=== PATIENT | female | born 2000 | race Two or more races ===

== ENCOUNTER 2021-12-29 00:07 | Emergency (ER) | payer BC ==
[~2021-12-29] VITALS: Ht 175.3 cm; Wt 77.1 kg
[2021-12-29] MEDS ORDERED: KETOROLAC TROMETHAMINE 15 MG/ML VIAL ONE (00:23)
--- NOTE | 2021-12-29 00:25 | NUR ---
TO ER BED 9. BIBS C/O ABDOMINAL PAIN AND "KIDNEY PAIN" X2-3DAYS. PT IS ALERT AND ORIENTED. RR EVEN AND NON LABORED. PAIN NOT RELIEVED BT OTC MEDS. CONNECTED TO MONITOR.
[2021-12-29] MEDS ORDERED: KETOROLAC TROMETHAMINE INJ 30 MG/ML VIAL IV ONE (00:30)
--- NOTE | 2021-12-29 00:47 | NUR ---
BLOOD COLLECTED AND SENT TO LAB
--- NOTE | 2021-12-29 00:47 | NUR ---
IV LINE ESTABLISHED. [id number]
[2021-12-29 01:32] LABS: BASOPHILS % (AUTO) 0.6 % (0.0-2.0); EOSINOPHILS % (AUTO) 1.1 % (0.0-6.0); HEMATOCRIT 37 % (33-45); HEMOGLOBIN 12.1 g/dL (11.5-14.8); LYMPHOCYTES # (AUTO) 2.4 K/uL (0.8-4.8); LYMPHOCYTES % (AUTO) 30.8 % (20.0-44.0); MEAN CORPUSCULAR HGB CONC 33 g/dl (31.0-36.0); MEAN CORPUSCULAR VOLUME 82 fL (82-100); MONOCYTES # (AUTO) 0.5 K/uL (0.1-1.30); MONOCYTES % (AUTO) 6.1 % (2.0-12.0); NEUTROPHILS # (AUTO) 4.8 K/uL (1.8-8.9); NEUTROPHILS % (AUTO) 61.4 % (43.0-81.0); PLATELET COUNT (AUTO) 187 K/uL (150-450); RED BLOOD CELL COUNT(AUTO) 4.51 MIL/uL (4.0-5.2); WHITE BLOOD COUNT (AUTO) 7.9 K/uL (4.3-11.0)
[2021-12-29 01:43] LABS: BILIRUBIN,URINE NEGATIVE (NEGATIVE); COLOR,URINE YELLOW (YELLOW); LEUKOCYTE ESTERASE ,URINE SMALL (NEGATIVE); NITRITE, URINE NEGATIVE (NEGATIVE); PROTEIN,URINE NEGATIVE (NEGATIVE); UGLUCOSE NEGATIVE (NEGATIVE); UROBILINOGEN,URINE 0.2 EU/dL (0.2)
[2021-12-29 01:46] LABS: ALBUMIN 3.9 g/dL (3.4-5.0); BILIRUBIN,DIRECT 0.1 mg/dL (0.0-0.2); BILIRUBIN,TOTAL 0.4 mg/dL (0.2-1.0); CREATININE 0.7 mg/dL (0.6-1.3); POTASSIUM 3.5 mmol/L (3.5-5.1); TOTAL PROTEIN, SERUM 7.7 g/dL (6.4-8.2)
[2021-12-29 01:59] LABS: BACTERIA,URINE Few /HPF (None Seen); RBC,URINE 0-2 /HPF (0-2); SQUAMOUS EPITHELIAL CELL,UR Moderate /HPF (None Seen)
[2021-12-29] MEDS ORDERED: KETO10TA2 PO (02:14)
[2021-12-29] MEDS ORDERED: CEPH500C2 PO (02:14)
--- NOTE | 2021-12-29 02:20 | NUR ---
Patient discharged to home in stable condition. Written and verbal after care instructions given. Patient verbalizes understanding of instruction. Pt ambulatory with a steady gait
[2021-12-29 02:21] VITALS: BP 128/80
== END 2021-12-29 02:21 | disposition home or self-care (01) ==
LOC: ER 00:17
DX: N12 Tubulo-interstitial nephritis, not specified as acute or chronic (principal)
CPT/HCPCS: 99283; 96374; 85025; 80048; 87086; 83690; 80076; 84703; 81001; 36415; J1885